=== PATIENT | male | born 1960 | race Caucasian/White ===

== ENCOUNTER → 2021-03-14 | Day surgery (SDC) | payer OTHER ==
[~2021-03-14] VITALS: Ht 167.6 cm; Wt 77.1 kg
[~2021-03-14] MED LIST: BACLOFEN 10MG T10 MG PO; LEVO-T112 MCG PO; LIPITOR40 M1 PO; LOVAZA1 GM PO; MULTIVITAMINS1 EAC1 PO; NORCO 5-325 TA1 EACH PO; ONDANSETRON ODT8 MG PO; ZIPSOR25 MG PO
== END | disposition home or self-care (01) ==
LOC: FAS 06:24
DX: K62.89 Other specified diseases of anus and rectum (principal); K64.4 Residual hemorrhoidal skin tags; K64.8 Other hemorrhoids; E03.9 Hypothyroidism, unspecified; E78.5 Hyperlipidemia, unspecified; Z87.891 Personal history of nicotine dependence
CPT/HCPCS: J2250; J2405; J2704; J3010; J7120